=== PATIENT | female | born 1950 | race Caucasian/White ===

== ENCOUNTER 2016-06-23 21:38 | Emergency (ER) | payer OTHER, MEDICAID ==
--- NOTE | 2016-06-23 21:36 | EDPHY ---
HPI/HX/ROS/PE/MDM Narrative: CHIEF COMPLAINT: Anxiety, nausea. HPI: The patient is a 65-year-old female who presents with nausea and anxiety secondary to eating two cannabis cookies two hours ago. She denies chest pain, shortness of breath, or other complaints. History limited due to clinical condition. REVIEW OF SYSTEMS: Unobtainable due to patient's clinical condition. PMH: Hypersensitivity pneumonitis. SOCIAL HISTORY: Uses marijuana. PHYSICAL EXAM: General: Patient is alert, in no acute distress. ENT: Eyes are normal to inspection. ENT inspection normal. Neck: Normal inspection. Full range of motion. Respiratory: No respiratory distress. Breath sounds normal bilaterally. Cardiovascular: Regular rate and rhythm. Strong peripheral pulses. Abdomen: The abdomen is nontender to palpation. There are no peritoneal signs. There are normal bowel sounds. Back: Normal to inspection. No tenderness to palpation. Skin: Normal color. No rash. Warm and dry. Extremities: Normal appearance. Full range of motion. Neuro: Oriented x3. Normal motor function. Normal sensory function. Portions of this note were transcribed by an ED scribe. I personally performed the history, physical exam, and medical decision making; and confirm the accuracy of the information in the transcribed note. (Eddy Teran) ED Course: I met EMS on arrival and obtained a report from the escape wheel tooth cutter. An IV was established and labs ordered. 1mg IV Ativan administered. 4mg IV Zofran administered for nausea. (Eddy Teran) 12:30 a.m.- I received sign-out on this patient from Dr. Teran. She has been stable throughout my shift with normal vital signs. Her labs have returned and are all unremarkable. The patient says that she ate a cannabis cookie and did not feel the effects so ate more and more pieces of it. She began feeling very nauseated and unwell. She now feels much better. We were able to walk her throughout the emergency room without any difficulty. She would like to go home. She will be discharged in good condition. I have counseled her on marijuana use. (Loretta Arriola) - Data Points Laboratory Results: Laboratory Results 06/23/16 23:10 06/23/16 23:10 06/23/16 06/23/16 23:10 23:10 WBC 7.06 10^3/uL 10^3/uL (3.80-9.50) RBC 3.83 10^6/uL L 10^6/uL (4.18-5.33) Hgb 12.1 g/dL L g/dL (12.6-16.3) Hct 35.6 % L % (38.0-47.0) MCV 93.0 fL fL (81.5-99.8) MCH 31.6 pg pg (27.9-34.1) MCHC 34.0 g/dL g/dL (32.4-36.7) RDW 13.3 % % (11.5-15.2) Plt Count 177 10^3/uL 10^3/uL (150-400) MPV 9.0 fL fL (8.7-11.7) Neut % (Auto) 78.0 % H % (39.3-74.2) Lymph % (Auto) 14.4 % L % (15.0-45.0) [place] % (Auto) 5.9 % % (4.5-13.0) Eos % (Auto) 1.0 % % (0.6-7.6) Baso % (Auto) 0.3 % % (0.3-1.7) Nucleat RBC Rel Count 0.0 % % (0.0-0.2) Absolute Neuts (auto) 5.50 10^3/uL 10^3/uL (1.70-6.50) Absolute Lymphs (auto) 1.02 10^3/uL 10^3/uL (1.00-3.00) Absolute Monos (auto) 0.42 10^3/uL 10^3/uL (0.30-0.80) Absolute Eos (auto) 0.07 10^3/uL 10^3/uL (0.03-0.40) Absolute Basos (auto) 0.02 10^3/uL 10^3/uL (0.02-0.10) Absolute Nucleated RBC 0.00 10^3/uL 10^3/uL (0-0.01) Immature Gran % 0.4 % % (0.0-1.1) Immature Gran # 0.03 10^3/uL 10^3/uL (0.00-0.10) Sodium 141 mEq/L mEq/L (134-144) Potassium 3.9 mEq/L mEq/L (3.5-5.2) Chloride 104 mEq/L mEq/L (97-110) Carbon Dioxide 29 mEq/l mEq/l (22-31) Anion Gap 8 mEq/L mEq/L (8-16) BUN 14 mg/dL mg/dL (7-23) Creatinine 0.6 mg/dL mg/dL (0.6-1.0) Estimated GFR > 60 Glucose 148 mg/dL H mg/dL (70-100) Calcium 9.1 mg/dL mg/dL (8.5-10.4) Troponin I < 0.012 ng/mL ng/mL (0-0.034) Medications Given: Discontinued Medications Lorazepam (Ativan Injection) 1 mg IVP EDNOW ONE Stop: 06/23/16 21:38 Last Admin: 06/23/16 23:08 Dose: Not Given Ondansetron HCl (Zofran) 4 mg IVP EDNOW ONE Stop: 06/23/16 22:50 Last Admin: 06/23/16 22:55 Dose: 4 mg General Initial Vital Signs: Initial Vital Signs Temperature (C) 36.9 C 06/23/16 21:49 Heart Rate 88 06/23/16 21:49 Respiratory Rate 17 06/23/16 21:49 Blood Pressure 101/79 06/23/16 21:49 O2 Sat (%) 96 06/23/16 21:49 O2 Delivery Mode Nasal Cannula O2 (L/minute) 2 Allergies/Adverse Reactions: No Known Allergies Allergy (Unverified 05/18/14 14:19) Home Medications: Medication Instructions Recorded ESOMEPRAZOLE MAG TRIHYDRATE 40 mg PO DAILY 11/21/11 [NEXIUM] Estradiol [Estraderm 0.05 MG] 0.05 mg TD .TWICEWEEKLY(DAYS?) 11/21/11 Fluticasone Hfa 220 Mcg [Flovent 1 puffs IH BID 11/21/11 220 MCG Hfa MDI (RX)] Hydrocodone/APAP 5/325 [[place] 1 - 2 tab PO Q4-6PRN PRN #14 tab 11/21/11 5/325] Levocetirizine Dihydrochloride 5 mg PO 11/21/11 [Xyzal] Montelukast Sodium [Singulair 10 10 mg PO DAILY@1800 11/21/11 mg (RX)] Pregabalin [Lyrica 75mg (RX)] 75 mg PO BID 11/21/11 Progesterone [First-Progesterone 100 mg VG 11/21/11 Vgs 100] Ondansetron Odt [Zofran Odt 4 mg 4 mg PO Q4 #10 tab 05/18/14 (RX)] Departure - Departure Disposition: Home, Routine, Self-Care Clinical Impression: Cannabis abuse Condition: Good Instructions: Cannabis Abuse (ED) Additional Instructions: Drink plenty of fluids. Follow up with your primary care provider this week for reevaluation. If you need a PCP you have been given the telephone number of the on-call outpatient doctor. Return to the emergency department if you experience any serious worsening of condition. Referrals: Anayeli Deshpande MD [Medical Doctor] - As per Instructions Report Scribed for: Eddy Teran Report Scribed by: Fer Downing Date of Report: 06/23/16 Time of Report: 21:53
[~2016-06-23 21:38] MED LIST: LORazepam 2 MG/ML INJ IVP ONE
[2016-06-23] MEDS ORDERED: ONDANSETRON 4 MG/2 ML VIAL ONE (22:48)
[2016-06-23] MEDS ORDERED: ONDANSETRON 4 MG/2 ML VIAL IVP ONE (22:49)
[2016-06-23 23:20] LABS: % IMMATURE GRANULYOCYTES 0.4 % (0.0-1.1); ABSOLUTE IMMATURE GRANULOCYTES 0.03 10^3/uL (0.00-0.10); ADD DIFF? NO; ADD MORPH? NO; ADD SCAN? NO; ATYPICAL LYMPHOCYTE FLAG 10 (0-99); FRAGMENT RBC FLAG 0 (0-99); HEMATOCRIT 35.6 % (38.0-47.0); HEMOGLOBIN 12.1 g/dL (12.6-16.3); LEFT SHIFT FLG 0 (0-99); LIPEMIA HEMOLYSIS FLAG 90 (0-99); MEAN CELL HEMOGLOBIN 31.6 pg (27.9-34.1); PLATELET CLUMPS FLAG 0 (0-99); PLATELET COUNT 177 10^3/uL (150-400); RED BLOOD CELL COUNT 3.83 10^6/uL (4.18-5.33); RED CELL DISTRIBUTION WIDTH 13.3 % (11.5-15.2)
[2016-06-23 23:35] LABS: ANION GAP 8 mEq/L (8-16); CALCIUM 9.1 mg/dL (8.5-10.4); CARBON DIOXIDE 29 mEq/l (22-31); CHLORIDE 104 mEq/L (97-110); CREATININE 0.6 mg/dL (0.6-1.0); GLOMERULAR FILTRATION RATE > 60; GLUCOSE 148 mg/dL (70-100); POTASSIUM 3.9 mEq/L (3.5-5.2); SODIUM 141 mEq/L (134-144)
[2016-06-23 23:47] LABS: TROPONIN I < 0.012 ng/mL (0-0.034)
[2016-06-24 00:56] VITALS: BP 117/78; PULSE 71; RESP 16; TEMP 98.1; O2SAT 97
== END 2016-06-24 00:56 | disposition home or self-care (01) ==
LOC: EDUNIT#
DX: F12.10 Cannabis abuse, uncomplicated (principal)
CPT/HCPCS: 96374; 99284; J2405

== ENCOUNTER → 2016-08-19 | Outpatient (CLI) | payer OTHER, MEDICAID | LOC: FIMAGING 14:51 | PROVIDERS: ATTEND Obstetrics & Gynecology | DX: Z12.31 Encounter for screening mammogram for malignant neoplasm of breast (principal) | CPT/HCPCS: G0202 ==

== ENCOUNTER 2017-04-07 17:47 | Inpatient (IN) | payer OTHER, MEDICAID ==
--- NOTE | 2017-04-07 18:22 | EDPHY ---
HPI/HX/ROS/PE/MDM Narrative: CHIEF COMPLAINT: Increasing shortness of breath HISTORY OF PRESENT ILLNESS: The patient is a 66 y/o female with a history of hypersensitivity pneumonitis and a cholecystectomy arriving via EMS, complaining of increasing shortness of breath. She is normally on 2-3 liters of home oxygen but has increased her 02 recently to 3-4L. A cough began 03/30/17, 9 days ago, which has made it more difficult for her to sleep. The cough is associated with yellow sputum. She is also subjectively febrile. She contacted her doctor at [facility] 3 days ago and was prescribed Azithromycin, which she stared on Friday, 2 days ago. Her fever decreased after the antibiotic and her sputum cleared, but her shortness of breath has not improved. Admits to using an inhaler for her asthma. Admits to receiving a flu vaccination this year. Denies history of cardiac disease. No chest pain, palpitations, vomiting, diarrhea, urinary complaints, headache, lightheadedness. REVIEW OF SYSTEMS: Aside from elements discussed in the HPI, a comprehensive 10-point review of systems was reviewed and is negative. PAST MEDICAL HISTORY: Hypersensitivity pneumonitis, asthma, cholecystectomy SOCIAL HISTORY: Lives in [facility] VITAL SIGNS: Reviewed by me GENERAL: Chronically ill appearing, on . No obvious respiratory distress. HEENT: Atraumatic. Eyes: No icterus, no injection. Mouth: moist mucous membranes. No erythema or lesions. Neck: supple with no adenopathy. LUNGS: Deep inspiration illicit a wheezing cough. Crackles in right upper lobe. CARDIAC: Regular rate and rhythm, no rubs, murmurs or gallops. ABDOMEN: Soft, nontender, nondistended, bowel sounds normal. Moderately obese. BACK: No CVA tenderness. EXTREMITIES: No trauma. No edema. Range of motion is normal throughout. NEURO: Alert and oriented, grossly nonfocal. SKIN: Warm and dry, no rash. PSYCHIATRIC: Normal mentation, no agitation. Portions of this note were transcribed by a medical insurance clerk. I personally performed a history, physical exam, medical decision making, and confirmed accuracy of information the transcribed note. ED Course: The patient is a 66 y/o female with a history of hypersensitivity pneumonitis and a cholecystectomy arriving via EMS, presenting with worsening shortness of breath. On exam she has a wheezing cough when she has a deep inspiration and crackles in her right upper lobe. Labs and chest x-ray ordered. DuoNeb, 125mg IV Solu-Medrol, and 1L IV NS administered. 1940: Patient's x-ray reveals development of bilateral interstitial infiltrates in comparison with most recent xray-- however, most recent film available here at [facility] is 2004. 2010: Patient has influenza A. Will admit for ongoing pulmonary support, nebs, steroids, oxygen, and fluids. WBC 2.85 2016: Consulted with Dr. Schilling, hospitalist, he agrees to admit this patient. 2019: Reassessed patient and discussed laboratory and imaging findings. I have also discussed plan for admission; patient is comfortable with this plan. MDM: Differential diagnosis for the patient's shortness of breath was considered including but not limited to pulmonary infectious processes, exacerbation of her underlying pulmonary disease, influenza, pulmonary emboli, pulmonary edema, congestive heart failure, and cardiac causes. - Data Points Imaging Results: Impression: 1. Development of bilateral interstitial infiltrates since 2004. 2. Prominent hilar silhouettes which could reflect underlying pulmonary artery hypertension or adenopathy, left greater than right. These findings could be further evaluated with contrast- enhanced CT imaging, as clinically directed. Dictated By: Ramesh Pollack MD Imaging: I viewed and interpreted images myself Laboratory Results: Laboratory Results 04/08/17 05:07 04/08/17 05:07 Medications Given: Azithromycin (Zithromax) 250 mg PO DAILY JOSE ANTONIO PRN Reason: Protocol Stop: 04/09/17 23:59 Last Admin: 04/09/17 08:46 Dose: 250 mg Budesonide (Pulmicort 180mcg Flexhaler) 2 puffs IH BID JOSE ANTONIO Stop: 10/05/17 08:59 Last Admin: 04/09/17 10:30 Dose: 2 puffs Cetirizine HCl (Zyrtec) 10 mg PO DAILY JOSE ANTOINO Stop: 10/05/17 08:59 Last Admin: 04/09/17 08:45 Dose: 10 mg Enoxaparin Sodium (Lovenox) 40 mg SC DAILY JOSE ANTONIO Stop: 10/05/17 08:59 Last Admin: 04/09/17 08:52 Dose: Not Given Guaifenesin/Dextromethorphan (Robitussin Dm Oral Liquid) 10 ml PO Q4HRS PRN PRN Reason: Cough, Moderate Stop: 10/06/17 00:05 Last Admin: 04/09/17 00:22 Dose: 10 ml Ipratropium [place] (Atrovent Neb) 0.5 mg IH Q6HRS PRN PRN Reason: Short of Breath/Dyspnea Stop: 10/05/17 14:44 Last Admin: 04/08/17 16:51 Dose: 0.5 mg Miscellaneous Medication (Non-Formulary) 0 ea PO HS JOSE ANTONIO Stop: 10/05/17 20:59 Last Admin: 04/08/17 03:19 Dose: 1 tab Miscellaneous Medication (Omeprazole [Prilosec 20 Mg]) 20 mg PO DAILY JOSE ANTONIO Stop: 10/05/17 08:59 Last Admin: 04/09/17 08:50 Dose: 1 tab Oseltamivir Phosphate (Tamiflu) 75 mg PO BIDMEAL [facility] Stop: 04/12/17 08:01 Last Admin: 04/09/17 08:43 Dose: 75 mg Prednisone (Prednisone) 60 mg PO DAILY [facility] Stop: 10/05/17 08:59 Last Admin: 04/09/17 08:48 Dose: 60 mg Discontinued Medications Albuterol (Proventil Neb) 3 ml IH EDNOW ONE Stop: 04/07/17 20:11 Last Admin: 04/07/17 21:26 Dose: 3 ml Albuterol (Proventil Neb) 3 ml IH Q4HRS JOSE ANTONIO Stop: 10/05/17 01:59 Last Admin: 04/08/17 14:53 Dose: Not Given Albuterol/Ipratropium (Duoneb) 3 ml IH EDNOW ONE Stop: 04/07/17 18:46 Last Admin: 04/07/17 18:57 Dose: 3 ml Sodium Chloride (Ns) 1,000 mls @ 0 mls/hr IV ONCE ONE; Wide Open PRN Reason: Protocol Stop: 04/07/17 18:46 Last Admin: 04/07/17 18:57 Dose: 1,000 mls Methylprednisolone Sodium Succinate (Solu-Medrol) 125 mg IVP EDNOW ONE Stop: 04/07/17 18:46 Last Admin: 04/07/17 18:57 Dose: 125 mg Miscellaneous Medication (Non-Formulary) 0 ea PO DAILY [facility] Stop: 04/09/17 09:01 Last Admin: 04/09/17 08:51 Dose: 10 mg Pantoprazole Sodium (Protonix) [address] [facility] Stop: 10/05/17 01:29 Last Admin: 04/08/17 03:28 Dose: Not Given Rosuvastatin Calcium (Crestor) [address] [facility] Stop: 10/05/17 01:29 Last Admin: 04/08/17 03:28 Dose: Not Given General Time Seen by Provider: 04/07/17 18:17 Initial Vital Signs: Initial Vital Signs Temperature (C) 36.9 C 04/07/17 18:05 Heart Rate 92 04/07/17 18:05 Respiratory Rate 18 04/07/17 18:05 Blood Pressure 109/77 04/07/17 18:05 O2 Sat (%) 97 04/07/17 18:05 O2 Delivery Mode Oxymask O2 (L/minute) 5 Allergies/Adverse Reactions: No Known Allergies Allergy (Verified 04/07/17 18:07) Home Medications: Medication Instructions Recorded AZITHROMYCIN [Z-PACK] 250 mg PO DAILY 04/07/17 Albuterol [Proventil Inhaler HFA 1 - 2 puffs IH Q4H PRN 04/07/17 (*)] Budesonide 180 Mcg INH [Pulmicort 2 puffs IH BID 04/07/17 180Mcg Flexhaler (*)] Cetirizine [ZyrTEC 10 mg (*)] 10 mg PO DAILY 04/07/17 FLUoxetine [Prozac 20 MG (*)] 10 mg PO DAILY 04/07/17 Herbals/Supplements -Info Only 1 ea PO DAILY 04/07/17 Multivitamins [Multivitamin (*)] 1 each PO DAILY 04/07/17 Rosuvastatin Calcium [Crestor 5mg] 5 mg PO HS 04/07/17 Solifenacin Succinate [Vesicare 5 5 mg PO DAILY8 04/07/17 MG (*)] guaiFENesin [Mucinex] 1,200 mg PO HS 04/07/17 Omeprazole [Prilosec 20 mg] 20 mg PO DAILY 04/08/17 Departure - Departure Disposition: [facility] Clinical Impression: Influenza A, Hypersensitivity pneumonitis Condition: Fair Report Scribed for: Elise Mullins Report Scribed by: Vivien River Date of Report: 04/07/17 Time of Report: 18:21
[2017-04-07] MEDS ORDERED: IPRATROPIUM/ALBUTEROL 3 ML DEYVIAL IH ONE (18:45)
[2017-04-07] MEDS ORDERED: methylPREDNISolone SOD SUCC 125 MG/2 ML VIAL IVP ONE (18:45)
[2017-04-07] MEDS ORDERED: NS 1,000 ML IV ONE (18:45)
[2017-04-07 19:05] LABS: PLATELET COUNT 173 10^3/uL (150-400)
[2017-04-07] MEDS ORDERED: ALBUTEROL 3 ML DEYVIAL IH ONE (20:10)
[2017-04-07] MEDS ORDERED: ONDANSETRON 4 MG/2 ML VIAL IVP PRN (22:11)
[2017-04-07] MEDS ORDERED: ONDANSETRON DISINTEGRATING 4 MG TAB PO PRN (22:11)
[2017-04-07] MEDS ORDERED: ALBUTEROL 3 ML DEYVIAL IH PRN (22:11)
[2017-04-07] MEDS ORDERED: ACETAMINOPHEN 325 MG TAB PO PRN (22:11)
[2017-04-07] MEDS: OSELTAMIVIR PHOSPHATE 75 MG CAP PO SCH (22:30)
[2017-04-08] MEDS ORDERED: PANTOPRAZOLE SODIUM 40 MG TAB PO SCH (01:30)
[2017-04-08] MEDS ORDERED: ROSUVASTATIN CALCIUM 10 MG TAB PO SCH (01:30)
[2017-04-08] MEDS: ALBUTEROL 3 ML DEYVIAL IH SCH ×5 (02:11→14:53)
--- NOTE | 2017-04-08 03:12 | PDGENHP ---
History and Physical - Chief Complaint SOB - History of Present Illness 66 yo F w/ hx of hypersensitivity pneumonitis and CHRF presents with shortness of breath. Patient states she has [facility] [place] Then around New Year[place] she developed an upper respiratory infection. She received a course of azithromycin from her insurance broker, which she thinks helped her symptoms. Since that time, however, she has developed progressive shortness of breath and fatigue. She came to the ED where she was found to be positive for influenza. History Information - Allergies/Home Medication List Allergies/Adverse Reactions: No Known Allergies Allergy (Verified 04/07/17 18:07) Home Medications: AZITHROMYCIN [Z-PACK] 250 mg PO DAILY 04/07/17 [Last Taken 04/07/17] Albuterol [Proventil Inhaler HFA (*)] 1 - 2 puffs IH Q4H PRN 04/07/17 [Last Taken 04/07/17] Budesonide 180 Mcg INH [Pulmicort 180Mcg Flexhaler (*)] 2 puffs IH BID 04/07/17 [Last Taken 04/07/17] Cetirizine [ZyrTEC 10 mg (*)] 10 mg PO DAILY 04/07/17 [Last Taken 03/31/17] FLUoxetine [Prozac 20 MG (*)] 10 mg PO DAILY 04/07/17 [Last Taken 04/02/17] Herbals/Supplements -Info Only 1 ea PO DAILY 04/07/17 [Last Taken Unknown] Multivitamins [Multivitamin (*)] 1 each PO DAILY 04/07/17 [Last Taken 04/05/17] Rosuvastatin Calcium [Crestor 5mg] 5 mg PO HS 04/07/17 [Last Taken 04/04/17] Solifenacin Succinate [Vesicare 5 MG (*)] 5 mg PO DAILY8 04/07/17 [Last Taken ] guaiFENesin [Mucinex] 1,200 mg PO HS 04/07/17 [Last Taken 04/06/17] Omeprazole [Prilosec 20 mg] 20 mg PO DAILY 04/08/17 [Last Taken Unknown] I have personally reviewed and updated: family history, medical history - Past Medical History Additional medical history: Hypersensitivity pneumonitis. CHRF, 2-3 L/min O2 at baseline - Surgical History Reports: cholecystectomy - Family History Additional family history: Chondromalacia - Social History Smoking Status: Never smoked Review of Systems Review of Systems: ROS: 10pt was reviewed & negative except for what was stated in HPI & below Physical Exam Physical Exam: Temp Pulse Resp BP Pulse Ox 36.6 C 98 18 131/85 H 94 04/07/17 21:41 04/07/17 21:41 04/07/17 21:20 04/07/17 21:41 04/07/17 21:41 O2 (L/minute) 4 Constitutional: no apparent distress, not in pain Eyes: PERRL, EOMI Ears, Nose, Mouth, Throat: moist mucous membranes, no oral mucosal ulcers Cardiovascular: regular rate and rhythym, no murmur, rub, or gallop Respiratory: expiratory wheeze (Diffuse), rhonchi (Diffuse) Gastrointestinal: normoactive bowel sounds, soft, non-tender abdomen Skin: warm, normal color Musculoskeletal: full muscle strength, no muscle tenderness Neurologic: AAOx3, CN II-XII Intact Psychiatric: interacting appropriately, not anxious Lab Data & Imaging Review 04/07/17 17:59 04/07/17 17:59 WBC 2.85 10^3/uL (3.80-9.50) L 04/07/17 17:59 RBC 4.20 10^6/uL (4.18-5.33) 04/07/17 17:59 Hgb 12.4 g/dL (12.6-16.3) L 04/07/17 17:59 Hct 36.4 % (38.0-47.0) L 04/07/17 17:59 MCV 86.7 fL (81.5-99.8) 04/07/17 17:59 MCH 29.5 pg (27.9-34.1) 04/07/17 17:59 MCHC 34.1 g/dL (32.4-36.7) 04/07/17 17:59 RDW 12.5 % (11.5-15.2) 04/07/17 17:59 Plt Count 173 10^3/uL (150-400) 04/07/17 17:59 MPV 9.0 fL (8.7-11.7) 04/07/17 17:59 Neut % (Auto) 48.1 % (39.3-74.2) 04/07/17 17:59 Lymph % (Auto) 37.5 % (15.0-45.0) 04/07/17 17:59 [place] % (Auto) 11.2 % (4.5-13.0) 04/07/17 17:59 Eos % (Auto) 2.8 % (0.6-7.6) 04/07/17 17:59 Baso % (Auto) 0.0 % (0.3-1.7) L 04/07/17 17:59 Nucleat RBC Rel Count 0.0 % (0.0-0.2) 04/07/17 17:59 Absolute Neuts (auto) 1.37 10^3/uL (1.70-6.50) L 04/07/17 17:59 Absolute Lymphs (auto) 1.07 10^3/uL (1.00-3.00) 04/07/17 17:59 Absolute Monos (auto) 0.32 10^3/uL (0.30-0.80) 04/07/17 17:59 Absolute Eos (auto) 0.08 10^3/uL (0.03-0.40) 04/07/17 17:59 Absolute Basos (auto) 0.00 10^3/uL (0.02-0.10) L 04/07/17 17:59 Absolute Nucleated RBC 0.00 10^3/uL (0-0.01) 04/07/17 17:59 Immature Gran % 0.4 % (0.0-1.1) 04/07/17 17:59 Immature Gran # 0.01 10^3/uL (0.00-0.10) 04/07/17 17:59 Sodium 139 mEq/L (134-144) 04/07/17 17:59 Potassium 3.6 mEq/L (3.5-5.2) 04/07/17 17:59 Chloride 99 mEq/L (97-110) 04/07/17 17:59 Carbon Dioxide 28 mEq/l (22-31) 04/07/17 17:59 Anion Gap 12 mEq/L (8-16) 04/07/17 17:59 BUN 7 mg/dL (7-23) 04/07/17 17:59 Creatinine 0.6 mg/dL (0.6-1.0) 04/07/17 17:59 Estimated GFR > 60 04/07/17 17:59 Glucose 118 mg/dL (70-100) H 04/07/17 17:59 Calcium 8.9 mg/dL (8.5-10.4) 04/07/17 17:59 Troponin I < 0.012 ng/mL (0.000-0.034) 04/07/17 17:59 Nasal Influenza A PCR FLU A DETECTED (NEGATIVE) 04/07/17 19:20 Nasal Influenza B PCR NEGATIVE FOR FLU B (NEGATIVE) 04/07/17 19:20 Imaging Review: Imaging Impressions Chest X-Ray 04/07/17 18:45 Impression: 1. Development of bilateral interstitial infiltrates since 02/07/2005. 2. Prominent hilar silhouettes which could reflect underlying pulmonary artery hypertension or adenopathy, left greater than right. These findings could be further evaluated with contrast-enhanced CT imaging, as clinically directed. Assessment & Plan Assessment: 66 yo F w/ hx of HP presents with SOB and found to have influenza. Plan: 1. Acute on chronic hypoxic respiratory failure w/ RAD exacerbation - Secondary to influenza A infection in the setting of hypersensitivity pneumonitis. She chronically uses 2-3 L/min O2, currently requiring 4-5 L/min O2 with diffuse wheezing on pulmonary exam. S/p full course of azithromycin prior to admission. - Tamiflu 75 mg BID noting severity of illness and pre-existing lung disease - Prednisone 60 mg qD - Albuterol q4h shara + q2h PRN - Consider pulmonology consult if not improving 2. Hypersensitivity pneumonitis, asthma - Interstitial prominence evident of CXR. Uses inhaled steroids and O2 chronically. She [facility] at [facility]. - Continue inhaled budesonide and daily antihistamine 3. GERD - Continue PPI Diet - Regular Code - Full Ppx - LMWH Dispo - Admit to observation status
[2017-04-08] MEDS: ROSUVASTATIN CALCIUM 5 MG PO SCH (03:19)
[2017-04-08] MEDS: OMEPRAZOLE 20 MG PO SCH ×2 (03:20→12:22)
[2017-04-08 05:33] LABS: PLATELET COUNT 156 10^3/uL (150-400)
[2017-04-08] MEDS: OSELTAMIVIR PHOSPHATE 75 MG CAP PO SCH ×2 (08:05→18:29)
[2017-04-08] MEDS: CETIRIZINE 10 MG TAB PO SCH (08:05)
[2017-04-08] MEDS: ENOXAPARIN 40 MG/0.4 ML SYR SC SCH ×2 (08:05→12:26)
[2017-04-08] MEDS: predniSONE 20 MG TAB PO SCH (08:05)
[2017-04-08] MEDS: BUDESONIDE 180 MCG MDI IH SCH ×2 (10:19→22:21)
[2017-04-08] MEDS: FLUOXETINE 20 MG PO SCH (12:21)
--- NOTE | 2017-04-08 13:47 | ASMTCASEMG ---
Living Arrangements What is your living Answers: Alone arrangement? Who do you live with? Type Of Residence What kind of residence do Answers: Apartment you live in? Discharge Plan Comments Coordination Status Comments Notes: Patient is a 66yo single female who was admitted to observation status due to acute hypoxic respiratory failure with RAD exacerbation secondary to influenza A infection in the setting of hypersensitivity pneumonitis. There are no orders for therapies at this time. D/C needs TBD. CM will follow. Date Signed: 04/08/2017 01:46 PM Electronically Signed By:Sil Kyle LCSW
[2017-04-08] MEDS ORDERED: LEVALBUTEROL 1.25 MG/3 ML DEYVIAL IH PRN (14:44)
[2017-04-08] MEDS: AZITHROMYCIN 250 MG TAB PO SCH (16:22)
[2017-04-08] MEDS: IPRATROPIUM BROMIDE 0.5 MG/2.5 ML DEYVIAL IH PRN (16:51)
--- NOTE | 2017-04-08 17:46 | HOSPPROG ---
Hospitalist Progress Note Assessment/Plan: 1. Acute on chronic hypoxic respiratory failure secondary to influenza A infection -chronically uses 2-3 L/min O2, currently requiring 4-5 L/min O2 -started azithromycin prior to admission per lever tender at [facility], has 2 more days, OK to finish - Tamiflu 75 mg BID - Prednisone 60 mg qD - change to ipratropium and xopenex nebs prn to see if helps/tolerated - Consider pulmonology consult if not improving 2. Hypersensitivity pneumonitis, asthma - Interstitial prominence evident of CXR. Uses inhaled steroids and O2 chronically. She follows at [facility]. - Continue inhaled budesonide and daily antihistamine 3. GERD - Continue PPI 4. Anemia -? chronic, lucinda need o/p eval and FU -follow to ensure not dropping 5. Low WBC -? reactive -recheck in AM 6. hyperglycemia -? from steroids -check HGBA1c as none prev in [employer] that I can find Diet - Regular Code - Full Ppx - lovenox PCP Adam Garcia FM Dispo > 2 mdnts anticipated bc of severity of hypoxia and low WBC Subjective: Doesn't want any more nebs as albuterol (and PO steroids) make her feel terrible. Says breathing seems a little better but not baseline. No CP/n/ v/d. Objective: Vital Signs Temp Pulse Resp BP Pulse Ox 98 F 87 16 101/65 96 04/08/17 15:17 04/08/17 16:53 04/08/17 16:53 04/08/17 15:17 04/08/17 16:53 Laboratory Results 04/08/17 05:07 04/08/17 05:07 04/07/17 04/08/17 04/09/17 11:59 11:59 11:59 Intake Total 600 400 Balance 600 400 - Time Spent With Patient Time Spent with Patient: greater than 35 minutes Time Spent with Patient: Greater than 35 minutes spent on this patients care, greater than 50% of time spent counseling, educating, and coordinating care regarding the above mentioned plan. - Pending Discharge Pending Discharge Within 24 Hours: No - Physical Exam Constitutional: no apparent distress, appears nourished, not in pain Ears, Nose, Mouth, Throat: moist mucous membranes Cardiovascular: regular rate and rhythym, No edema Respiratory: no respiratory distress, reduced air movement, other (faint scattered wheezes B) Gastrointestinal: normoactive bowel sounds, soft, non-tender abdomen Skin: warm Psychiatric: interacting appropriately, not anxious, not encephalopathic, thought process linear ICD10 Worksheet Patient Problems: Problems Problem Status Onset Hypersensitivity pneumonitis Acute Influenza A Acute
[2017-04-08] MEDS ORDERED: OMEPRAZOLE 20 MG PO SCH (21:00)
[2017-04-09] MEDS ORDERED: GUAIFENESIN/DM 10 ML UDCUP PO PRN (00:06)
[2017-04-09] MEDS: OSELTAMIVIR PHOSPHATE 75 MG CAP PO SCH ×2 (08:43→17:31)
[2017-04-09] MEDS: CETIRIZINE 10 MG TAB PO SCH (08:45)
[2017-04-09] MEDS: AZITHROMYCIN 250 MG TAB PO SCH (08:46)
[2017-04-09] MEDS: predniSONE 20 MG TAB PO SCH (08:48)
[2017-04-09 08:49] LABS: PLATELET COUNT 159 10^3/uL (150-400)
[2017-04-09] MEDS: OMEPRAZOLE 20 MG PO SCH (08:50)
[2017-04-09] MEDS: FLUOXETINE 20 MG PO SCH (08:51)
[2017-04-09] MEDS: ENOXAPARIN 40 MG/0.4 ML SYR SC SCH (08:52)
[2017-04-09] MEDS: BUDESONIDE 180 MCG MDI IH SCH ×2 (10:30→20:37)
--- NOTE | 2017-04-09 11:11 | PDMN ---
Medical Necessity Medical necessity: change to IP; los>2mn for acute on chronic hypoxic resp failure r/t influenza A, with continued severe hypoxia, anemia, low wbc, and hyperglycemia; continue O2, follow labs; comorbid hypersensitivity pneumonitis, w/ baseline O2 needs 2-3L; per progress note and order 04/08/17
--- NOTE | 2017-04-09 16:25 | HOSPPROG ---
Hospitalist Progress Note Assessment/Plan: 1. Acute on chronic hypoxic respiratory failure secondary to influenza A infection -chronically uses 2-3 L/min O2, currently requiring 4-5 L/min O2 -started azithromycin prior to admission per die machine operator at [facility], has 1 more day - Tamiflu 75 mg BID - Prednisone 60 mg qD - change to ipratropium and xopenex nebs prn yesterday, says better off albuterol - asked Dr Carlton for pulmonology consult -records requested from [facility] 2. Hypersensitivity pneumonitis, asthma - Interstitial prominence evident of CXR. Uses inhaled steroids and O2 chronically. She follows at [facility]. - Continue inhaled budesonide and daily antihistamine 3. GERD - Continue PPI 4. Anemia -? chronic, will need o/p eval and FU -stable 5. Low WBC -? reactive -normal today (also on PO steroids now which will elevate) -follow as o/p recommended also 6. hyperglycemia -? from steroids -A1C 6.0/pre-DM ranges Diet - Regular Code - Full Ppx - lovenox PCP Adam Garcia FM Dispo > 2 mdnts anticipated bc of severity of hypoxia Subjective: Feel OK, tired with walking (and O2 dropped quite a bit per RT). No v/d/CP. Objective: Vital Signs Temp Pulse Resp BP Pulse Ox 97.9 F 78 20 102/68 97 04/09/17 14:31 04/09/17 14:31 04/09/17 14:31 04/09/17 14:31 04/09/17 14:31 Laboratory Results 04/09/17 08:26 04/09/17 08:26 04/08/17 04/09/17 04/10/17 11:59 11:59 11:59 Intake Total 400 Balance 400 - Time Spent With Patient Time Spent with Patient: greater than 25 minutes Time Spent with Patient: Greater than 25 minutes spent on this patients care, greater than 50% of time spent counseling, educating, and coordinating care regarding the above mentioned plan. - Physical Exam Constitutional: no apparent distress, appears nourished, not in pain Eyes: anicteric sclera Ears, Nose, Mouth, Throat: moist mucous membranes Cardiovascular: regular rate and rhythym, no murmur, rub, or gallop, No edema Respiratory: no respiratory distress, no rales or rhonchi, No expiratory wheeze Gastrointestinal: soft, non-tender abdomen Skin: warm, normal color Psychiatric: interacting appropriately, not anxious, not encephalopathic, thought process linear ICD10 Worksheet Patient Problems: Problems Problem Status Onset Hypersensitivity pneumonitis Acute Influenza A Acute
[2017-04-09] MEDS: ROSUVASTATIN CALCIUM 5 MG PO SCH (20:30)
[2017-04-09] MEDS: IPRATROPIUM BROMIDE 0.5 MG/2.5 ML DEYVIAL IH PRN (20:41)
--- NOTE | 2017-04-10 04:16 | GCON ---
[f rep st] CONSULTATION PULMONARY CONSULTATION DATE OF CONSULTATION: 04/09/2017 REASON FOR CONSULTATION: Influenza bronchopneumonia, history of hypersensitivity pneumonitis. HISTORY: The patient is a pleasant 66-year-old, whom I saw in the office many years ago. She has a history of hypersensitivity pneumonitis and has been followed for many years at [facility]. She is maintained on budesonide and is also on albuterol, and she has a component of reactive airways di sease/asthma, as well. She has been on steroids and possibly other medications for her hypersensitiv ity pneumonitis in the past. Complete details of this underlying lung disease are unknown to me at t his time as records from [facility] are not currently available. In any case, she was doing relatively well and at her baseline until a little over week ago. At this time, she developed signs and symptoms of an upper respiratory infection with some cough, increased wheezing, increased shortness of breath, and yellow mucus. She called [facility] and was placed on azithromycin, which she thinks has helped. However, she has had progressive fatigue and shortnes s of breath, and thus presented to the emergency department on April 07. She was positive for inf luenza. She was thus admitted. Tamiflu was initiated. She was given prednisone, and bronchodilator therapies were continued. No further antibiotics were given as she had completed a complete course of azithromycin. Chest x-ray on admission did show bilateral diffuse pulmonary disease consistent with pulmonary fibro sis/interstitial disease/acute pneumonitis (?). In addition, there is hilar fullness, left greater t smalls right, possibly representing some adenopathy versus enlargement of pulmonary arteries. Clinically, she has been stable. She has been on 5 L of oxygen, slightly above her baseline of 3 L, which she uses continually at home. She states she is feeling better but is still somewhat congested . She desaturates with ambulation despite being on oxygen. PAST MEDICAL HISTORY: Remarkable for the interstitial lung disease/hypersensitivity pneumonitis as o utlined above. She does have a bird at home. There is a history of depression, hyperlipidemia, reac tive airways disease, and gastroesophageal reflux disease. HOME MEDICATIONS: Included omeprazole, albuterol, Pulmicort, azithromycin which she recently finishe d, Mucinex, VESIcare, Prozac, Zyrtec, and Crestor. SOCIAL HISTORY: The patient lives alone. She has a bird at home, which she feels is not related to her hypersensitivity pneumonitis. She has had other birds in the past which may have been (?). She is a never smoker. Significant alcohol is denied. FAMILY HISTORY: Noncontributory. REVIEW OF SYSTEMS: A 10-point review of systems is negative except as outlined above. There is no h istory of heart disease, thromboembolic disease, renal disease, hypothyroidism, diabetes, etc. DRUG ALLERGIES: No known drug allergies. PHYSICAL EXAMINATION: GENERAL: Reveals a pleasant woman, who is somewhat overweight. She is sittin g comfortably in a chair. VITAL SIGNS: Oxygen is in place at 5 L with saturations of 98%. Blood pr essure is approximately 105/70, heart rate 85 with sinus rhythm on the monitor. Respiratory rate is 20. She is afebrile. HEENT: Unremarkable for lymphadenopathy or thyromegaly. There is no obvious jugular venous distention. CHEST: Reveals decreased breath sounds bilaterally with some scattered r ales, wheezes, and central congestion with cough. She is currently unable to bring up any mucus. Sh e is not tight. She is not using accessory muscles. HEART: Regular in rate and rhythm without sign ificant murmur or gallop. ABDOMEN: Soft, nontender. Slightly overweight. Bowel sounds are present . EXTREMITIES: Without edema or cords. SKIN: Without rash. NEUROLOGIC: Unremarkable/normal. DATABASE: Chest x-ray: This was personally reviewed. There are bilateral interstitial infiltrates present. Whether these all represent chronic changes or there is an acute pneumonitis present is unk nown. Her last x-ray at [facility] was in 2004. There is also some left perihilar prominence , significantly less on the right. Laboratory: White blood cell count is 6000. Hematocrit 31, down from 36 on admission. Platelets ar e normal. Sodium is 140, potassium 4.1, BUN 11 with creatinine 0.5. Glucose is 142, calcium 9.2. N o cultures have been obtained. Influenza A was positive by PCR. ASSESSMENT: 1. Influenza A bronchopneumonia, with apparent pneumonitis, increased shortness of breath, and incre ased bronchospasm. She has completed a full course of azithromycin that was started prior to her hos pitalization. She is now on Tamiflu. Bronchodilator therapies will be continued. Prednisone has al so be given at 60 mg per day. She feels she has improved compared to admission. 2. History of interstitial lung disease/hypersensitivity pneumonitis. She is followed at [facility]. This does not appear to be consistent with a flare of her hypersensitivity pneumonitis, altho [facility] she is appropriately being covered with steroids, prednisone at 60 mg. This will be continued fo r now. 3. History of reactive airways disease. Bronchodilator therapies and steroids will be continued. 4. Prophylaxis: She is on enoxaparin and omeprazole. PLAN AND RECOMMENDATIONS: Patient will be kept in the hospital today. Bronchodilator therapies, jarrod roids, and Tamiflu will all be continued. Activity will be increased as tolerated. Based on her pro kev, she could possibly be discharged to home tomorrow. I would like to see her oxygen closer to b aseline and less desaturations with exercise. [facility] studies and recent radiologic reports will be requested from [facility]. If needed, a CT scan of the chest could be obtained with bryn barraza. However, I would not recommend this at the current time. Further plans and recommendations will be made based on her progress over the next 12-24 hours. /[id number]/MODL
[2017-04-10 05:44] LABS: PLATELET COUNT 184 10^3/uL (150-400)
[2017-04-10] MEDS: OMEPRAZOLE 20 MG PO SCH (07:51)
[2017-04-10] MEDS: CETIRIZINE 10 MG TAB PO SCH (07:51)
[2017-04-10] MEDS: FLUoxetine 10 MG CAP PO SCH (07:51)
[2017-04-10] MEDS: predniSONE 20 MG TAB PO SCH (07:51)
[2017-04-10] MEDS: OSELTAMIVIR PHOSPHATE 75 MG CAP PO SCH ×2 (07:53→17:13)
[2017-04-10] MEDS: ENOXAPARIN 40 MG/0.4 ML SYR SC SCH (07:57)
[2017-04-10] MEDS: BUDESONIDE 180 MCG MDI IH SCH ×2 (09:38→20:40)
[2017-04-10] MEDS ORDERED: LEVALBUTEROL 0.63 MG/3 ML DEYVIAL IH PRN (10:30)
--- NOTE | 2017-04-10 12:59 | HOSPPROG ---
Hospitalist Progress Note Assessment/Plan: 66-year-old with known chronic hypoxic respiratory failure on 3 L of oxygen presents with acute fever and noted to be influenza positive and has been started on Tamiflu. She has a past history of hypersensitivity pneumonitis with significant bronchospasm and interstitial prominence. She is chronically on inhaled steroids and O2 at 3 liters/minute and follow-through [facility]. Patient is new to me today 1. 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 Hypersensitivity pneumonitis, asthma - Interstitial prominence evident of CXR. Uses inhaled steroids and O2 chronically. She follows at [facility]. - Continue inhaled budesonide and daily antihistamine 3. GERD - Continue PPI 4. Anemia -? chronic, will need o/p eval and FU -stable 5. Low WBC -? reactive -normal today (also on PO steroids now which will elevate) -follow as o/p recommended also 6. hyperglycemia -? from steroids -A1C 6.0/pre-DM ranges Plan: Will have PT intervene and assist the patient with exercise and assess her oxygen saturation at rest and with exertion. I expect she should be able to be discharged tomorrow on O2. She has liquid O2 at home and not a concentrator for unclear reasons. Subjective: Reports she still feels slightly short of breath a little bit anxious and requires more oxygen than usual. No chest pain nausea vomiting or diarrhea Objective: Vital Signs Temp Pulse Resp BP Pulse Ox 36.4 C 75 20 94/60 L 95 04/10/17 11:59 04/10/17 11:59 04/10/17 11:59 04/10/17 11:59 04/10/17 11:59 Laboratory Results 04/10/17 04:58 04/09/17 08:26 04/09/17 04/10/17 04/11/17 05:59 05:59 05:59 Intake Total 400 350 250 Balance 400 350 250 - Time Spent With Patient Time Spent with Patient: greater than 35 minutes Time Spent with Patient: Greater than 35 minutes spent on this patients care, greater than 50% of time spent counseling, educating, and coordinating care regarding the above mentioned plan. - Pending Discharge Pending Discharge Within 24 Hours: Yes Pending Discharge Date: 04/11/17 Pending Discharge Time: 11:00 - Physical Exam Constitutional: no apparent distress Eyes: PERRL, anicteric sclera Ears, Nose, Mouth, Throat: moist mucous membranes, hearing normal Cardiovascular: regular rate and rhythym, no murmur, rub, or gallop Respiratory: no respiratory distress, reduced air movement, inspiratory crackles Gastrointestinal: normoactive bowel sounds, soft, non-tender abdomen, no palpable masses Genitourinary: no bladder fullness Skin: warm Musculoskeletal: full muscle strength Neurologic: AAOx3, CN II-XII Intact Psychiatric: interacting appropriately ICD10 Worksheet Patient Problems: Problems Problem Status Onset Influenza A Acute Hypersensitivity pneumonitis Acute
--- NOTE | 2017-04-10 16:48 | SOAPPROG ---
SOAP Progress Note Assessment/Plan: Assessment: Influenza A bronchopneumonia with airway congestion, bronchospasm, persistent hypoxemia and cough. Also has has recent treatment for bronchitis with azithromycin. History of underlying interstitial lung disease: Presumably hypersensitivity pneumonitis, possibly from birds. She is followed at [facility] for this. There is no evidence of an exacerbation of this interstitial disease process at this time. We do not have a recent baseline x-ray prior to this admission. Current x-ray may show increased markings compared to her baseline due to pneumonitis related to influenza. History of gastroesophageal reflux: On PPI. Plan: Continue present care including Tamiflu, nebulized treatments, metered- dose budesonide and prednisone. Increase ambulation as tolerated. Wean oxygen as possible back down to 3 L, her baseline. Consider discharge to home possibly tomorrow if she continues to improve. Subjective: Feels a little bit better. Oxygen has been decreased to 4 L. She still has cough, shortness of breath, and desaturation with increased exertional activities. Objective: Vital Signs Temp Pulse Resp BP Pulse Ox 36.5 C 70 16 103/64 98 04/10/17 15:26 04/10/17 15:26 04/10/17 15:26 04/10/17 15:26 04/10/17 15:26 Laboratory Results 04/10/17 04:58 04/09/17 08:26 04/09/17 04/10/17 04/11/17 05:59 05:59 05:59 Intake Total 400 350 250 Balance 400 350 250 Physical Exam - Physical Exam General Appearance: alert, no apparent distress, obese EENT: PERRL/EOMI, other (Nasal cannula at 4 L, 88%) Neck: normal inspection (No obvious JVD) Respiratory: lungs clear (Anteriorly with passive breathing), decreased breath sounds, rales (Few skin basilar rales.), wheezing (Some with cough and forced exhalation), prolonged expiration, No rhonchi Cardiac/Chest: regular rate, rhythm Abdomen: normal bowel sounds, non-tender, soft Skin: normal color, warm/dry Extremities: No pedal edema Neuro/Psych: no motor/sensory deficits, No cognition abnormalities ICD10 Worksheet Patient Problems: Problems Problem Status Onset Hypersensitivity pneumonitis Acute Influenza A Acute
[2017-04-10] MEDS: ROSUVASTATIN CALCIUM 5 MG PO SCH (20:10)
[2017-04-11] MEDS: predniSONE 20 MG TAB PO SCH (08:22)
[2017-04-11] MEDS: FLUoxetine 10 MG CAP PO SCH (08:22)
[2017-04-11] MEDS: OSELTAMIVIR PHOSPHATE 75 MG CAP PO SCH (08:22)
[2017-04-11] MEDS: CETIRIZINE 10 MG TAB PO SCH (08:23)
[2017-04-11] MEDS: OMEPRAZOLE 20 MG PO SCH (08:24)
[2017-04-11] MEDS: BUDESONIDE 180 MCG MDI IH SCH (09:55)
[2017-04-11 11:34] VITALS: RESP 24
[2017-04-11 15:25] VITALS: BP 98/70; PULSE 80; TEMP 97.4; O2SAT 98
--- NOTE | 2017-04-11 16:27 | SOAPPROG ---
SOAP Progress Note Assessment/Plan: Assessment: Influenza A bronchopneumonia with airway congestion, bronchospasm, persistent hypoxemia and cough. Also has had recent treatment for bronchitis with azithromycin. She is clearly improving. Some cough and congestion persist however bronchospasm and hypoxemia seen on admission are resolving. She appears to be back to her baseline oxygen requirements of approximately 3 L. History of underlying interstitial lung disease: Presumably hypersensitivity pneumonitis, possibly from birds. She is followed at [facility] for this. There is no evidence of an exacerbation of this interstitial disease process at this time. We do not have a recent baseline x-ray prior to this admission. Current x-ray may show increased markings compared to her baseline due to pneumonitis related to influenza. History of gastroesophageal reflux: On PPI. Plan: Continue present care including Tamiflu, nebulized treatments, metered- dose budesonide and prednisone. Increase ambulation as tolerated. Wean oxygen back down to 3 L. Consider discharge to home today or tomorrow. From my standpoint she can go. Pulmonary follow-up would be at [facility] if possible within the next couple of weeks. She should take a copy of her CD ROM CXR with her, as well as a copy of her spirometry of possible. Continue inhaled therapies on discharge per her usual routine, and prednisone taper. Subjective: Feels better today. Still has some cough and congestion. O2 needs down to 3-4 L, her baseline. No chest pain. Objective: Vital Signs Temp Pulse Resp BP Pulse Ox 36.3 C 80 24 H 98/70 L 98 04/11/17 15:23 04/11/17 15:23 04/11/17 15:23 04/11/17 15:23 04/11/17 15:23 Laboratory Results 04/10/17 04:58 04/09/17 08:26 04/10/17 04/11/17 04/12/17 05:59 05:59 05:59 Intake Total 350 350 550 Balance 350 350 550 Spirometry today. I did not observe this being done. Forced vital capacity is 1.72 L, 61% of predicted with an FEV1 of 1.05 L, approximately 50% of predicted. The ratio is 61%. This was a baseline test only. She refused Xopenex and repeat testing. Physical Exam - Physical Exam General Appearance: alert, no apparent distress, obese EENT: other (Oxygen in place at 3 L when I saw her. On 3 L saturations at the end of the walk were 88%.) Neck: normal inspection (No obvious JVD) Respiratory: decreased breath sounds (Breath sounds somewhat coarse), prolonged expiration, No normal breath sounds, No respiratory distress, No accessory muscle use, No rales (No rales heard despite her history of interstitial disease ), No rhonchi (No rhonchi. However with cough and forced exhalation there is some central bronchial congestion), No wheezing (No wheezes. Expiratory phase is prolonged.) Cardiac/Chest: regular rate, rhythm Abdomen: normal bowel sounds, non-tender, soft (Obese) Skin: normal color, warm/dry Extremities: pedal edema (Trace) Neuro/Psych: no motor/sensory deficits, No cognition abnormalities ICD10 Worksheet Patient Problems: Problems Problem Status Onset chronic disease mgmt/transitional care Acute Influenza A Acute Hypersensitivity pneumonitis Acute
--- NOTE | 2017-04-11 16:37 | PDIAF ---
- Diagnosis Code Status: Full Code - Medication Management Discharge Medications: Medications to Continue on Transfer Albuterol [Proventil Inhaler HFA (*)] 1 - 2 puffs IH Q4H PRN 04/07/17 [Last Taken 04/07/17] Budesonide 180 Mcg INH [Pulmicort 180Mcg Flexhaler (*)] 2 puffs IH BID 04/07/17 [Last Taken 04/07/17] Cetirizine [ZyrTEC 10 mg (*)] 10 mg PO DAILY 04/07/17 [Last Taken 03/31/17] FLUoxetine [Prozac 20 MG (*)] 10 mg PO DAILY 04/07/17 [Last Taken 04/02/17] Herbals/Supplements -Info Only 1 ea PO DAILY 04/07/17 [Last Taken Unknown] Multivitamins [Multivitamin (*)] 1 each PO DAILY 04/07/17 [Last Taken 04/05/17] Rosuvastatin Calcium [Crestor 5mg] 5 mg PO HS 04/07/17 [Last Taken 04/04/17] Solifenacin Succinate [Vesicare 5 MG (*)] 5 mg PO DAILY8 04/07/17 [Last Taken ] guaiFENesin [Mucinex] 1,200 mg PO HS 04/07/17 [Last Taken 04/06/17] Omeprazole [Prilosec 20 mg] 20 mg PO DAILY 04/08/17 [Last Taken Unknown] Acetaminophen [Tylenol 325mg (*)] 650 mg PO Q4HRS PRN tab 04/11/17 [Last Taken Unknown] Oseltamivir Phosphate [Tamiflu 75 mg (*)] 75 mg PO BIDMEAL #2 cap 04/11/17 [ Last Taken Unknown] predniSONE [Prednisone] 20 mg PO DAILY #60 tab.ds.pk 04/11/17 [Last Taken Unknown] Discharge Medications: Refer to the Discharge Home Medication list for PRN reason. - Orders Services needed: Home Care, Registered Nurse, Physical Therapy Home Care Face to Face: I certify that this patient was under my care and that I had the required [id number] encounter meeting the encounter requirements on the discharge day. My findings support the fact that the patient is homebound as defined in Home Care Face to Face Continued: CMS Chapter 7 Medicare Benefits Manual 30.1.1 , The condition of the patient is such that there exists a normal inability to leave home and consequently, leaving home would require a considerable and taxing effort. Isolation Type: Droplet Isolation Diet Texture: Regular Texture Diet - Follow Up Care Current Providers and Referrals: Patient,NotPresent [Unknown] - As per Instructions Carlos Carlton MD [Medical Doctor] - follow up in 2 weeks
--- NOTE | 2017-04-11 17:35 | ASDISCHSUM ---
Discharge Information Plan Status:Home with Home Health Medically Cleared to Leave: Discharge Date:04/11/2017 05:21 PM CM D/C Disposition:Home Health Service ADT D/C Disposition:Home, Routine, Self-Care Projected Discharge Date:04/11/2017 11:00 AM Transportation at D/C:ALS/BLS Discharge Delay Reason: Follow-Up Date:04/11/2017 11:00 AM Discharge Slot: Final Diagnosis: Placement Information Referral Type:*Home Health Care Services Referral ID:[id number] Provider Name:[facility] [address] Address 2: City:[place] Selection Factors: State:[place] Patient Contact Information Contact Name:FOSTER Relationship:Friend Address:[address] Work Phone: City:[place] Alternate Phone: [facility]/Zip Code:[place] [address] Email: Financial Information Financial Class: Primary Plan Desc:MEDICARE INPATIENT Primary Plan Number:[id number] Secondary Plan Desc:MEDICA[place] Secondary Plan Number:[id number] Assessment Information [facility] Initial CM Assessment Living Arrangements What is your living Answers: Alone arrangement? Who do you live with? Type Of Residence What kind of residence do Answers: Apartment you live in? Discharge Plan Comments Coordination Status Comments Notes: Patient is a 66yo single female who was admitted to observation status due to acute hypoxic respiratory failure with RAD exacerbation secondary to influenza A infection in the setting of hypersensitivity pneumonitis. There are no orders for therapies at this time. D/C needs TBD. CM will follow. Date Signed: 04/08/2017 01:46 PM Electronically Signed By:Sil Kyle LCSW Case Management Discharge Plan Note Case Management Discharge Discharge Order Complete? Answers: Yes Patient to Obtain Answers: Other Notes: [facility] Medications Transportation Arranged Answers: Other Notes: tried to arrange wheelchair, but [facility] brought stretcher - Medicaid Faxed Final Orders Answers: Yes Notes: sent via allscripts to [facility] Discharge Comments Notes: PT and bedside RN recommending home RN and PT. With Pt's consent, made referral to [facility] for homecare. Sent referral via Allscripts. Cassandra at [facility] confirms acceptance of Pt. Kira provided Pt. with [facility] brochure, [employer] Meals on Wheels information, and [employer] delivery service information at her request. Kira called [facility] for wheelchair Medicaid transport. [facility] set up wheelchair transport. Ride NOT authorized by VE. [facility] sent stretcher for Pt. Pt. transported home via stretcher. Date Signed: 04/11/2017 05:31 PM Electronically Signed By:Kamliah Anders LCSW Intervention Information Intervention Type:*ATILIO-Signed Date of Service:04/08/2017 10:27 AM Patient Type:Observation Staff Member:Susy Chery Hours: Discipline: Severity: Comment: Intervention Type:*IM-Signed Date of Service:04/11/2017 04:40 PM Patient Type:Inpatient Staff Member:Susy Chery Hours: Discipline: Severity: Comment:
--- NOTE | 2017-04-11 23:25 | GDS ---
[f rep st] DISCHARGE SUMMARY KNOWN ACUTE DIAGNOSES: 1. Acute interstitial and alveolar pneumonia secondary to influenza. 2. Acute respiratory failure. 3. Hypersensitivity pneumonitis with possible acute exacerbation. 4. Gastroesophageal reflux disease. CHRONIC DIAGNOSES: 1. Hypersensitivity pneumonitis. 2. Anemia. 3. Chronic respiratory failure on 3 L nasal prong oxygen at baseline. CONSULTATIONS: Pulmonary and Dr. Carlos Carlton. PROCEDURES: None. HOSPITAL COURSE: This is a 66-year-old female, who presented with increasing cough, shortness of ke ath, and perhaps productive sputum. She is known to have chronic hypersensitivity pneumonitis, chron ic interstitial pneumonitis, and presented with acute worsening respiratory failure requiring additio nal oxygen above her baseline of 3-4 L nasal prong oxygen. She had received a course of azithromycin from her artificial log machine operator, and she thought it helped, but she continued to be short of breath. She was admitted and placed on intensive bronchodilator therapy, along with Tamiflu for influenza A as it wa s detected on PCR analysis. She progressively and slowly improved under this regime, and at discharg e, was at her baseline need of oxygen. She required PT evaluation and was found to be somewhat weak, but she was cleared for home care. Her home care would include RN and PT assistance. At the time o f discharge, she had completed an azithromycin course and was required to take 2 more doses of Tamifl u. LABORATORY DATA: Of note at the time of discharge, her WBC was 7000, hemoglobin 10.6. Chemistry clifford el was normal, and note that her influenza A was detected. DISCHARGE MEDICATIONS: New medications are Tamiflu 75 mg b.i.d., #2 to be taken tonight and tomorrow morning, Tylenol on a p.r.n. basis. Her stopped medications were azithromycin, which she had completed a course of. Her continued medications are Pulmicort 180 mcg inhaler 2 puffs b.i.d. and albuterol rescue inhaler 1 -2 puffs q.4 hours p.r.n., multivitamins daily, Mucinex 1200 mg h.s., VESIcare 5 mg daily, Prozac 10 mg daily, Crestor 5 mg daily, Zyrtec 10 mg daily, herbal supplementation, omeprazole 20 mg daily, and prednisone will be continued at 20 mg a day. PLAN: She will be discharged to home on her usual oxygen at 3-4 L/minute. She is to continue her do se of prednisone to 20 mg a day until she is seen by Pulmonary for subsequent taper. FOLLOWUP: Will be with her artificial log machine operator or with Dr. Carlos Carlton in 1-2 weeks. TIME: This discharge required 45 minutes, greater than 50% to director of group counseling program and coordinate the lady's care . /[id number]/MODL
== END 2017-04-11 17:21 | disposition home or self-care (01) | DRG 193 ==
LOC: EDUNIT# → F3E 21:35 → OBSVTOIN 04-08 15:38
PROVIDERS: ADMIT Internal Medicine; ATTEND Internal Medicine
DX: J10.08 Influenza due to other identified influenza virus with other specified pneumonia (principal); J18.0 Bronchopneumonia, unspecified organism; J96.21 Acute and chronic respiratory failure with hypoxia; J45.901 Unspecified asthma with (acute) exacerbation; K21.9 Gastro-esophageal reflux disease without esophagitis; D53.9 Nutritional anemia, unspecified; Z99.81 Dependence on supplemental oxygen
CPT/HCPCS: 96374; 97116-GP; 97161-GP; 97530-GP; G0378; G8978-GP-CI; G8979-GP-CI; J1650; J2930; J7512; J7613

== ENCOUNTER 2017-04-29 17:22 | Emergency (ER) | payer OTHER, MEDICAID ==
--- NOTE | 2017-04-29 17:22 | EDPHY ---
H & P Time Seen by Provider: 04/29/17 17:22 HPI/ROS: CHIEF COMPLAINT: Weakness HISTORY OF PRESENT ILLNESS: Patient was discharged 04/11/2017 after being hospitalized for influenza a. She has a history of interstitial lung disease and was doing relatively well at home until today when she started feeling much weaker. She said she felt shaky at home and like she "was going to collapse," but did not actually have syncope or a fall or injury. She feels generally weak with no headache or fever or focal weakness in arms or legs. She says she has some difficulty standing up. Symptoms severe. Her breathing seems stable and that she has been a little short of breath ever since being discharged but that has not really changed. She is on about 4 L nasal cannula. REVIEW OF SYSTEMS: Eye: no change in vision ENT: Mild thrush in her throat, a little bit of pain near her right sinus or cheek the last 24 hr Cardiac: No chest pain Pulmonary: no cough or SOB, cough has improved since she was discharged Abdomen: no vomiting, diarrhea, abdominal pain Musculoskeletal: Chronic back pain unchanged Skin: no rash Neuro: no headache Constitutional: no fever : no urinary symptoms, did have cough incontinence when she was hospitalized A comprehensive 10 point review of systems is otherwise negative aside from elements mentioned in the history of present illness. PAST MEDICAL HISTORY: Hypersensitivity pneumonitis chronically on oxygen, cholecystectomy. Anemia with baseline hemoglobin and hematocrit 10 and 30. Social history: Nonsmoker, lives independently General Appearance: Alert and conversant, cooperative. Eyes: No scleral icterus. ENT, Mouth: Normal mucous membranes. Respiratory: Normal respiratory effort, breath sounds equal, lungs are clear to auscultation. Cardiovascular: Regular rate and rhythm. Gastrointestinal: Abdomen is soft and non tender. Neurological: Alert, face symmetric, good bilateral bow repairer custom strength. She does have trouble holding her right leg and left leg off the bed for a count of 10. She can go to about 8 before they fall back on the bed. Skin: Warm and dry, no rashes. Musculoskeletal: Trace bilateral peripheral edema but no calf tenderness. Psychiatric: Not agitated. Mildly anxious. Emergency Department course/MDM: Urinalysis, chest x-ray, EKG. CBC and chemistry. 1825: Database reviewed, has possible urinary tract infection. Chest x-ray is interstitial lung disease but appears improved from 1 month ago. 1 g ceftriaxone IV, admission for UTI and weakness, difficulty independent in her living situation right now with her degree of weakness, immunocompromised chronically on prednisone. IV normal saline 1 L and stress dose hydrocortisone ordered. Patient then refused admission, has capacity to make decisions regarding her care, related to not being able to have her caged birds with her in the hospital. Refused alternative arrangements for her birds. Keflex prescription written, urine culture pending. Constitutional: Initial Vital Signs Temperature (C) 36.8 C 04/29/17 17:26 Heart Rate 94 04/29/17 17:26 Respiratory Rate 20 04/29/17 17:26 Blood Pressure 139/79 H 04/29/17 17:26 O2 Sat (%) 98 04/29/17 17:26 O2 Delivery Mode Nasal Cannula O2 (L/minute) 3 Allergies/Adverse Reactions: No Known Allergies Allergy (Verified 04/07/17 18:07) Home Medications: Medication Instructions Recorded Budesonide 180 Mcg INH [Pulmicort 2 puffs IH BID 04/07/17 180Mcg Flexhaler (*)] Cetirizine [ZyrTEC 10 mg (*)] 10 mg PO DAILY PRN 04/07/17 Herbals/Supplements -Info Only 1 ea PO DAILY 04/07/17 Multivitamins [Multivitamin (*)] 1 each PO DAILY 04/07/17 Rosuvastatin Calcium [Crestor 5mg] 5 mg PO HS 04/07/17 Solifenacin Succinate [Vesicare 5 5 mg PO DAILY 04/07/17 MG (*)] guaiFENesin [Mucinex] 1,200 mg PO HS 04/07/17 Omeprazole [Prilosec 20 mg] 20 mg PO DAILY 04/08/17 Cephalexin [Keflex] 500 mg PO QID #40 cap 04/29/17 Cholecalciferol Vit D3 [Vitamin D3 2,000 units PO DAILY 04/29/17 (*)] FLUoxetine [Prozac 10 MG (*)] 10 mg PO DAILY 04/29/17 predniSONE [Prednisone] 10 mg PO DAILY 04/29/17 Medical Decision Making - Diagnostics EKG Interpretation: 12-lead EKG interpreted by me; official reading is in trace master. My interpretation is sinus rhythm rate 74 no ischemic changes Differential Diagnosis: Differential diagnosis considered for weakness including but not limited to UTI , electrolyte abnormality, depression, anxiety, CVA, spinal cord abnormality, and infectious causes. Consult/Admit Bed Type: [place] [id number] - Data Points Laboratory Results: Laboratory Results 04/29/17 17:30 04/29/17 17:30 Microbiology Results: MICROBIOLOGY 04/29/17 18:43 Urine,Clean Catch Urine Culture - Preliminary Two Paige Types Medications Given: Discontinued Medications Cephalexin (Keflex 500 Mg Prepack#4) 1 btl TAKEHOME EDNOW ONE PRN Reason: Protocol Stop: 04/29/17 20:24 Last Admin: 04/29/17 20:45 Dose: 1 btl Hydrocortisone (Solucortef) 100 mg IVP EDNOW ONE Stop: 04/29/17 18:35 Last Admin: 04/29/17 18:39 Dose: 100 mg Sodium Chloride (Ns) 1,000 mls @ 0 mls/hr IV ONCE ONE; Wide Open PRN Reason: Protocol Stop: 04/29/17 17:36 Last Admin: 04/29/17 17:40 Dose: 1,000 mls Ceftriaxone Sodium 1 gm/ (Sterile Water) 10 mls @ 150 mls/hr IV EDNOW ONE PRN Reason: Protocol Stop: 04/29/17 18:30 Last Admin: 04/29/17 18:48 Dose: 10 mls Ceftriaxone Sodium 1 gm/ (Sterile Water) 10 mls @ 150 mls/hr IV EDNOW ONE PRN Reason: Protocol Stop: 04/29/17 18:35 Last Admin: 04/29/17 18:40 Dose: Not Given Sodium Chloride (Ns) 1,000 mls @ 3,000 mls/hr IV ONCE ONE Stop: 04/29/17 18:52 Last Admin: 04/29/17 18:50 Dose: 1,000 mls Departure - Departure Disposition: [facility] Inpatient Acute Clinical Impression: Weakness, Urinary tract infection Condition: Good Instructions: Cephalexin (By mouth), Urinary Tract Infection in Women (ED), Weakness (ED) Referrals: Patient,NotPresent [Unknown] - As per Instructions ([place], your primary care clinic.) Carlos Carlton MD [Medical Doctor] - As per Instructions Prescriptions: Cephalexin [Keflex] 500 mg PO QID #40 cap
[2017-04-29 17:28] VITALS: RESP 20
[2017-04-29] MEDS ORDERED: NS 1,000 ML IV ONE ×2 (17:35→18:33)
--- NOTE | 2017-04-29 17:46 | CPEKG ---
Heart Rate: 74 RR Interval: 811 P-R Interval: 140 QRSD Interval: 84 QT Interval: 372 QTC Interval: 413 P [place]: 39 QRS [place]: 40 T Wave [place]: 51 EKG Severity - NORMAL ECG - EKG Impression: SINUS RHYTHM Electronically Signed By: Qamar Zavala 29-Apr-2017 17:45:22
[2017-04-29 17:50] LABS: PLATELET COUNT 134 10^3/uL (150-400)
[2017-04-29 17:56] VITALS: O2SAT 96
[2017-04-29] MEDS ORDERED: cefTRIAXone 1 GM in STERILE WATER INJ 10 ML IV ONE ×2 (18:27→18:32)
[2017-04-29] MEDS ORDERED: ONDANSETRON DISINTEGRATING 4 MG TAB PO PRN (18:33)
[2017-04-29] MEDS ORDERED: ACETAMINOPHEN 325 MG TAB PO PRN (18:33)
[2017-04-29] MEDS ORDERED: ONDANSETRON 4 MG/2 ML VIAL IVP PRN (18:33)
[2017-04-29] MEDS ORDERED: HYDROCORTISONE 100 MG/2 ML VIAL IVP ONE (18:34)
[2017-04-29 19:43] VITALS: BP 125/77; PULSE 89; TEMP 98.4
[2017-04-29] MEDS ORDERED: CEPHALEXIN 500MG PREPACK#4 BTL TAKEHOME ONE (20:23)
[2017-04-29] MEDS ORDERED: CETIRIZINE 10 MG TAB PO PRN (20:23)
--- NOTE | 2017-04-29 20:50 | GHP ---
[f rep st] HISTORY AND PHYSICAL DATE OF ADMISSION: 04/29/2017 CHIEF COMPLAINT: Weakness. HISTORY OF PRESENT ILLNESS: This is a 66-year-old female who has a complicated medical history, incl uding recent influenza illness. She was hospitalized 04/08/2017 and discharged on 04/11/2017. The p marko reports that she has remained quite weak and ill since her last disposition without a sensatio n that she has completely recovered from her underlying illness. The patient denies any subjective f marlee or chills. Reports overall fatigue, malaise, weakness, shaking sensation. Her appetite has be en adequate, although she requires support from [employer] for adequate nourishment. The patien t reports frequency of her urine. Denies dysuria or blood in her urine. Denies diarrhea. Reports c hronic shortness of breath with the resolution of the previous cough she had during her influenza sta y. Denies any increasing lower extremity edema. Denies any new rashes or known sick contacts. PAST MEDICAL HISTORY: 1. Hypersensitivity pneumonitis, chronic. 2. Chronic hypoxic respiratory failure, on 2-3 L oxygen and chronic steroids. 3. Chronic anemia. 4. Gastroesophageal reflux disease. SOCIAL HISTORY: The patient lives independently. Denies tobacco. Drinks occasional alcohol. No il licit drugs or marijuana. FAMILY HISTORY: Positive for heart disease. REVIEW OF SYSTEMS: A 10-point review of systems is negative with the exception of that reported in t he HPI. PHYSICAL EXAMINATION: VITAL SIGNS: Blood pressure is 125/77, heart rate 89, respiratory rate 20, sa turating 96% on 3 L, 36.9. GENERAL: This is an obese appearing, older than stated age female, who i s in no acute distress. HEENT: Notable for moist mucous membranes. Eye exam is negative for any ic terus. CARDIAC: Heart sounds are distant, but regular. PULMONARY: Clear to auscultation bilateral ly. GASTROINTESTINAL: Positive bowel sounds. ABDOMEN: Soft. MUSCULOSKELETAL: Negative for any l ower extremity edema. SKIN: Negative for any rashes. NEUROLOGIC: The patient is alert and oriente d x3. PSYCHIATRIC: She is cooperative on interview and examination. LABORATORY DATA: Chest x-ray, which I personally reviewed and interpreted, shows stable interstitial infiltrates with no acute changes. White count 6.1, hematocrit 33.6, which is baseline, creatinine 0.6. Urinalysis shows 5-10 white blo od cells. ASSESSMENT: This is a 66-year-old female presenting with fatigue and weakness. 1. Suspected urinary tract infection. The patient does have frequency and white cells on her urine. We will empirically treat with IV ceftriaxone and send the urine for culture. 2. Profound weakness and fatigue. I suspect this is likely related to her medical comorbidities and recent influenza illness. I have asked PT OT evaluate the patient to help make recommendations rela nimo to safe disposition. I suspect she could benefit from some support in the home beyond just [employer]als [employer] Wheels. 3. Chronic hypersensitivity pneumonitis. The patient has been recently tapered on her steroid thera py. Her blood pressures are stable. I will continue this dosing, as I do not believe that the UTI w arrants pulse dose steroids at this time. 4. Depression. We will continue the patient's Prozac therapy. 5. Prophylaxis with Lovenox. 6. Diet regular. DISPOSITION: I expect less than 2 midnights. The patient urine cultures are negative, and her thera py assessments are appropriate for disposition with assist. I have discussed the [facility] with [facility]. The patient will be triaged to the medical-surgical floor for IV antibiotics, o bservation, and therapy assessment. /[id number]/MODL
[2017-04-29] MEDS ORDERED: NON-FORMULARY NEW DRUG (Rosuvastatin Calcium [Crestor 5mg] 5 MG) PO SCH (21:00)
[2017-04-29] MEDS ORDERED: NON-FORMULARY NEW DRUG (Guaifenesin [Mucinex] 1,200 MG) PO SCH (21:00)
[2017-04-29] MEDS ORDERED: BUDESONIDE 180 MCG MDI IH SCH (21:00)
[2017-04-30] MEDS ORDERED: SOLIFENACIN SUCCINATE 5 MG TAB PO SCH (09:00)
[2017-04-30] MEDS ORDERED: FLUoxetine 10 MG CAP PO SCH (09:00)
[2017-04-30] MEDS ORDERED: predniSONE 10 MG TAB PO SCH (09:00)
[2017-04-30] MEDS ORDERED: cefTRIAXone 1 GM in STERILE WATER INJ 10 ML IV SCH (09:00)
[2017-04-30] MEDS ORDERED: MULTIVITAMINS 1 EACH TAB PO SCH (09:00)
[2017-04-30] MEDS ORDERED: NON-FORMULARY NEW DRUG (Omeprazole [Prilosec 20 Mg] 20 MG) PO SCH (09:00)
[2017-04-30] MEDS ORDERED: ENOXAPARIN 40 MG/0.4 ML SYR SC SCH (09:00)
[2017-04-30] MEDS ORDERED: CHOLECALCIFEROL VIT D3 1,000 UNITS TAB PO SCH (09:00)
[2017-04-30] MEDS ORDERED: Herbals/Supplements -Info Only PO SCH (09:00)
== END 2017-04-29 21:30 | disposition home or self-care (01) ==
LOC: EDUNIT# → UNDOADMOB 18:33
DX: N39.0 Urinary tract infection, site not specified (principal); J67.9 Hypersensitivity pneumonitis due to unspecified organic dust; F32.9 Major depressive disorder, single episode, unspecified; E86.9 Volume depletion, unspecified
CPT/HCPCS: 71046; 93005; 96360; 99285; J0696

== ENCOUNTER 2017-12-16 21:02 | Emergency (ER) | payer OTHER, MEDICAID ==
[2017-12-16] MEDS ORDERED: NS 500 ML IV ONE (21:17)
[2017-12-16 21:50] LABS: PLATELET COUNT 156 10^3/uL (150-400)
--- NOTE | 2017-12-16 22:01 | EDPHY ---
H & P Stated Complaint: NEAR SYNCOPE, HELPED TO FLOOR NO FALL Time Seen by Provider: 12/16/17 22:01 HPI/ROS: HPI CHIEF COMPLAINT: Pre syncope, lightheaded HISTORY OF PRESENT ILLNESS: This is a 67-year-old female, she has a history of interstitial lung disease, hypersensitivity pneumonitis, wears oxygen,, otherwise rather healthy, no cardiovascular history, presents emergency room stating that she was in a anabaptism this evening standing up, got very lightheaded she had to sit down. She felt like she was going to passed out she did get nauseous and diaphoretic. She did not have any chest pain or shortness of breath. She did not have a syncopal episode. Denies abdominal pain neck pain jaw pain or back pain. This happened at 9:00 p.m. It is now 10:15 p.m. When I am seeing her she states she feels much better. Patient does report to me she did not drink lot of fluids today. Reported that in the charge was very hot. Past Medical History: Interstitial lung disease on oxygen, GERD, pneumonia Past Surgical History: No recent surgery Social History: Denies daily use drugs alcohol tobacco. Family History: Noncontributory ROS REVIEW OF SYSTEMS: 10 Systems were reviewed and negative with the exception of the elements mentioned in the history of present illness. Exam Constitutional he appears well nontoxic no acute distress, triage nursing summary reviewed, vital signs reviewed, awake/alert. Eyes normal conjunctivae and sclera, EOMI, PERRLA. HENT normal inspection, atraumatic, moist mucus membranes, no epistaxis, neck supple/ no meningismus, no raccoon eyes. Respiratory clear to auscultation bilaterally, normal breath sounds, no respiratory distress, no wheezing. Cardiovascular rate normal, regular rhythm, no murmur, no edema, distal pulses normal. Gastrointestinal soft, non-tender, no rebound, no guarding, normal bowel sounds, no distension, no pulsatile mass. Genitourinary no CVA tenderness. Musculoskeletal no midline vertebral tenderness, full range of motion, no calf swelling, no tenderness of extremities, no meningismus, good pulses, neurovascularly intact. Skin pink, warm, & dry, no rash, skin atraumatic. Neurologic awake, alert and oriented x 3, AAOx3, moves all 4 extremities equally, motor intact, sensory intact, CN II-XII intact, normal cerebellar, normal vision, normal speech. Psychiatric normal mood/affect. Heme/Lymph/Immune no lymphadenopathy. Differential Diagnosis: Includes but is not limited to in a particular order dehydration, orthostatic hypotension, electrolyte disturbance, ACS, cardiac arrhythmia Medical Decision Making: Plan for this patient: IV establishment IV fluid bolus, check electrolytes, hydrate, orthostatics, EKG, troponin and re-evaluate. Re-evaluation: EKG interpretation by me on record in [email or web address] system. Impression time of EKG 2109: Sinus rhythm rate of 70, no signs of acute ischemia or signs of cardiac arrhythmia. Unremarkable EKG. The reason this EKG was performed due to presyncope lightheadedness. Troponin 0.01. 1225: Patient is requesting be discharged. She ambulated well to the bathroom without difficulty she denies chest pain or shortness of breath, denies lightheadedness. Her initial troponin EKG are unremarkable. She did not have a syncopal episode. She never had any chest pain or shortness of breath. Plan will be for repeat EKG repeat troponin. And re-evaluation. EKG interpretation by me on record in [email or web address] system. Impression time of EKG 0034, sinus rhythm rate of 68 without any signs of acute ischemia or signs of cardiac arrhythmia. Source: Patient - Personal History Current Tetanus/Diphtheria Vaccine: Yes Current Tetanus Diphtheria and Acellular Pertussis (TDAP): Yes Tetanus Vaccine Date: 2017 - Medical/Surgical History Hx Asthma: No Hx Chronic Respiratory Disease: Yes Hx Diabetes: No Hx Cardiac Disease: No Hx Renal Disease: No Hx Cirrhosis: No Hx Alcoholism: No Hx HIV/AIDS: No Hx Splenectomy or Spleen Trauma: No Other PMH: PMHx: hypersensitivity pneumonitis. PSHx: cholecystectomy; wisdom tooth extraction.glanular fever 1949 - Social History Smoking Status: Never smoked Constitutional: Initial Vital Signs Temperature (C) 36.5 C 12/16/17 21:00 Heart Rate 79 12/16/17 21:00 Respiratory Rate 18 12/16/17 21:00 Blood Pressure 127/84 H 12/16/17 21:00 O2 Sat (%) 97 12/16/17 21:00 O2 Delivery Mode Nasal Cannula O2 (L/minute) 2 Allergies/Adverse Reactions: No Known Allergies Allergy (Verified 12/16/17 21:08) Home Medications: Medication Instructions Recorded Budesonide 180 Mcg INH [Pulmicort 2 puffs IH BID 04/07/17 180Mcg Flexhaler (*)] Cetirizine [ZyrTEC 10 mg (*)] 10 mg PO DAILY PRN 04/07/17 Herbals/Supplements -Info Only 1 ea PO DAILY 04/07/17 Multivitamins [Multivitamin (*)] 1 each PO DAILY 04/07/17 Rosuvastatin Calcium [Crestor 5mg] 5 mg PO HS 04/07/17 Solifenacin Succinate [Vesicare 5 5 mg PO DAILY 04/07/17 MG (*)] guaiFENesin [Mucinex] 1,200 mg PO HS 04/07/17 Omeprazole [Prilosec 20 mg] 20 mg PO DAILY 04/08/17 Cephalexin [Keflex] 500 mg PO QID #40 cap 04/29/17 Cholecalciferol Vit D3 [Vitamin D3 2,000 units PO DAILY 04/29/17 (*)] FLUoxetine [Prozac 10 MG (*)] 10 mg PO DAILY 04/29/17 predniSONE [Prednisone] 10 mg PO DAILY 04/29/17 Medical Decision Making - Diagnostics Imaging Results: Imaging Impressions Chest X-Ray 12/16/17 22:07 Impression: Diffuse interstitial opacities consistent with interstitial lung disease with no definite superimposed acute cardiopulmonary abnormality identified. - Data Points Laboratory Results: Laboratory Results 12/16/17 21:34 12/16/17 21:34 12/16/17 12/16/17 12/16/17 22:14 21:34 21:34 WBC RBC Hgb Hct MCV MCH MCHC RDW Plt Count MPV Neut % (Auto) Lymph % (Auto) [place] % (Auto) Eos % (Auto) Baso % (Auto) Nucleat RBC Rel Count Absolute Neuts (auto) Absolute Lymphs (auto) Absolute Monos (auto) Absolute Eos (auto) Absolute Basos (auto) Absolute Nucleated RBC Immature Gran % Immature Gran # Sodium 137 mEq/L mEq/L (135-145) Potassium 3.7 mEq/L mEq/L (3.3-5.0) Chloride 100 mEq/L mEq/L (97-110) Carbon Dioxide 27 mEq/l mEq/l (22-31) Anion Gap 10 mEq/L mEq/L (8-16) BUN 14 mg/dL mg/dL (7-23) Creatinine 0.7 mg/dL mg/dL (0.6-1.0) Estimated GFR > 60 Glucose 95 mg/dL mg/dL (70-100) Calcium 9.7 mg/dL mg/dL (8.5-10.4) Magnesium 2.1 mg/dL mg/dL (1.6-2.3) Total Bilirubin 0.4 mg/dL mg/dL (0.1-1.4) Conjugated Bilirubin 0.1 mg/dL mg/dL (0.0-0.5) Unconjugated Bilirubin 0.3 mg/dL mg/dL (0.0-1.1) AST 29 IU/L IU/L (14-46) ALT 32 IU/L IU/L (9-52) Alkaline Phosphatase 85 IU/L IU/L (38-126) POC Troponin I 0.01 ng/mL ng/mL (0.00-0.08) NT-Pro-B Natriuret Pep 138 pg/mL H pg/mL (0-125) Total Protein 7.0 g/dL g/dL (6.3-8.2) Albumin 3.9 g/dL g/dL (3.5-5.0) 12/16/17 21:34 WBC 5.81 10^3/uL 10^3/uL (3.80-9.50) RBC 4.16 10^6/uL L 10^6/uL (4.18-5.33) Hgb 12.4 g/dL L g/dL (12.6-16.3) Hct 36.9 % L % (38.0-47.0) MCV 88.7 fL fL (81.5-99.8) MCH 29.8 pg pg (27.9-34.1) MCHC 33.6 g/dL g/dL (32.4-36.7) RDW 13.2 % % (11.5-15.2) Plt Count 156 10^3/uL 10^3/uL (150-400) MPV 8.8 fL fL (8.7-11.7) Neut % (Auto) 70.1 % % (39.3-74.2) Lymph % (Auto) 18.9 % % (15.0-45.0) Hudson % (Auto) 8.8 % % (4.5-13.0) Eos % (Auto) 1.4 % % (0.6-7.6) Baso % (Auto) 0.5 % % (0.3-1.7) Nucleat RBC Rel Count 0.0 % % (0.0-0.2) Absolute Neuts (auto) 4.07 10^3/uL 10^3/uL (1.70-6.50) Absolute Lymphs (auto) 1.10 10^3/uL 10^3/uL (1.00-3.00) Absolute Monos (auto) 0.51 10^3/uL 10^3/uL (0.30-0.80) Absolute Eos (auto) 0.08 10^3/uL 10^3/uL (0.03-0.40) Absolute Basos (auto) 0.03 10^3/uL 10^3/uL (0.02-0.10) Absolute Nucleated RBC 0.00 10^3/uL 10^3/uL (0-0.01) Immature Gran % 0.3 % % (0.0-1.1) Immature Gran # 0.02 10^3/uL 10^3/uL (0.00-0.10) Sodium Potassium Chloride Carbon Dioxide Anion Gap BUN Creatinine Estimated GFR Glucose Calcium Magnesium Total Bilirubin Conjugated Bilirubin Unconjugated Bilirubin AST ALT Alkaline Phosphatase POC Troponin I NT-Pro-B Natriuret Pep Total Protein Albumin Medications Given: Discontinued Medications Sodium Chloride (Ns) 500 mls @ 1,000 mls/hr IV EDNOW ONE PRN Reason: Protocol Stop: 12/16/17 21:46 Last Admin: 12/16/17 21:35 Dose: 500 mls Sodium Chloride (Ns) 1,000 mls @ 0 mls/hr IV ONCE ONE PRN Reason: Wide Open Stop: 12/16/17 22:08 Last Admin: 12/16/17 23:00 Dose: 1,000 mls Point of Care Test Results: Chemistry 12/16/17 22:14 POC Troponin I 0.01 ng/mL ng/mL (0.00-0.08) Departure - Departure Disposition: Home, Routine, Self-Care Clinical Impression: Lightheaded Condition: Good Instructions: Near Syncope (ED), Lightheadedness (ED) Additional Instructions: 1. Drink lots of fluids stay well-hydrated 2. Rest. 3. Return emergency room if there is worsening symptoms questions or concerns includes chest pain, passing out or not feeling well. Referrals: Kandy Romeo MD [Primary Care Provider] - As per Instructions
[2017-12-16] MEDS ORDERED: NS 1,000 ML IV ONE (22:07)
--- NOTE | 2017-12-16 23:05 | CPEKG ---
Test Reason : OPEN Blood Pressure : / mmHG Vent. Rate : 070 BPM Atrial Rate : 069 BPM P-R Int : 141 ms QRS Dur : 088 ms QT Int : 411 ms P-R-T Axes : 046 028 056 degrees QTc Int : 444 ms Sinus rhythm Confirmed by Ketty Medina ([id number]) on 12/16/2017 11:04:18 PM Referred By: Confirmed By:Ketty Medina
[2017-12-17 01:34] VITALS: BP 121/75
--- NOTE | 2017-12-18 15:09 | CPEKG ---
Test Reason : OPEN Blood Pressure : / mmHG Vent. Rate : 068 BPM Atrial Rate : 067 BPM P-R Int : 141 ms QRS Dur : 085 ms QT Int : 426 ms P-R-T Axes : 039 015 054 degrees QTc Int : 454 ms Sinus rhythm Confirmed by Qamar Zavala ([id number]) on 12/18/2017 3:08:29 PM Referred By: Confirmed By:Qamar Zavala
== END 2017-12-17 01:34 | disposition home or self-care (01) ==
LOC: EDUNIT#
DX: R42 Dizziness and giddiness (principal); R55 Syncope and collapse
CPT/HCPCS: 84484-PO